=== PATIENT | male | born 1995 | race Caucasian/White ===

== ENCOUNTER 2025-01-16 02:31 | Emergency (ER) | payer OTHER, SELFPAY ==
[2025-01-16 02:46] VITALS: BP 140/87
[2025-01-16 03:52] LABS: % Basophils 0.3 % (0-2); % Eosinophils 1.1 % (0-6); % Immature Granulocytes 0.3 % (0-0.5); % Lymphocytes 37.8 % (20.5-51.1); % Monocytes 8.6 % (1.7-9.3); % Neutrophils 51.9 % (42.2-75.2); Absolute Eosinophils 0.1 10^3/uL (0-0.7); Absolute Monocytes 0.7 10^3/uL (0.1-0.6); Absolute Neutrophils 4.1 10^3/uL (1.4-6.5); Hematocrit 45.3 % (39.0-52.0); Hemoglobin 15.2 g/dL (13.0-18.0); Mean Corp Hgb Conc. 33.6 g/dL (33.0-37.0); Mean Corpuscular Hgb 29.7 pg (27.0-31.0); Mean Corpuscular Volume 88.6 fL (80.0-94.0); Mean Platelet Volume 10.5 fL (7.4-10.4); Nucleated Red Blood Cells % 0 % (-); Platelet Count 221 10^3/uL (130-400); Red Blood Cell Count 5.11 10^6/uL (4.70-6.10); Red Cell Dist. Width 12.1 % (11.5-14.5); White Blood Cell Count 7.9 10^3/uL (4.8-10.8)
[2025-01-16 03:59] VITALS: BMI 19.8
[2025-01-16 04:07] LABS: ALT (SGPT) 30 U/L (0-50); AST (SGOT) 26 U/L (17-59); Albumin 4.7 g/dl (3.5-5.0); Alkaline Phosphatase 83 U/L (38-126); Blood Urea Nitrogen 27 mg/dl (9-20); Calcium 9.7 mg/dl (8.4-10.2); Carbon Dioxide 27 mmol/L (22-30); Chloride 102 mmol/L (98-107); Glucose 103 mg/dl (70-99); Sodium 140 mmol/L (135-145); Total Bilirubin 0.4 mg/dl (0.2-1.3); Total Protein 7.9 g/dl (6.3-8.2); eGFR > 60.00
[2025-01-16 04:15] LABS: Troponin I < 0.012 ng/ml
[2025-01-16 04:38] LABS: COVID-19 Antigen Negative (Negative)
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
[2025-01-16 05:04] VITALS: BP 129/86
[2025-01-16 06:14] LABS: Troponin I < 0.012 ng/ml
[2025-01-16 06:24] LABS: D-Dimer < 0.27 ug/mlFEU (0.00-0.50)
[2025-01-16 06:30] VITALS: BP 126/72
== END 2025-01-16 06:43 | disposition home or self-care (01) ==
LOC: EMR 02:31
PROVIDERS: EMERGENCY PHYSICIAN Student in an Organized Health Care Education/Training Program
DX: R07.89 Other chest pain (principal); Z11.52 Encounter for screening for COVID-19; Z87.828 Personal history of other (healed) physical injury and trauma
CPT/HCPCS: 99285; 71046; 80053; 84484; 85025; 85379; 87502; 87811; 93005

== ENCOUNTER 2025-09-01 23:58 | Emergency (ER) | payer OTHER, SELFPAY ==
[2025-09-02 00:06] VITALS: BP 150/100
[2025-09-02 00:17] VITALS: BMI 19.6
[2025-09-02 00:21] VITALS: BP 138/85
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
[2025-09-02 01:00] VITALS: BP 152/93
== END 2025-09-02 01:44 | disposition home or self-care (01) ==
LOC: EMR 23:58
PROVIDERS: EMERGENCY PHYSICIAN Emergency Medicine; FAMILY PHYSICIAN Internal Medicine
DX: M94.0 Chondrocostal junction syndrome [Tietze] (principal)
CPT/HCPCS: 99283; 71046; 93005